=== PATIENT | male | born 1990 ===

== ENCOUNTER → 2023-08-27 08:04 | Outpatient (REF) | payer OTHER, SELFPAY | LOC: RAD 08:04 | PROVIDERS: ATTENDING PHYSICIAN Internal Medicine Cardiovascular Disease; FAMILY PHYSICIAN Internal Medicine | DX: R07.9 Chest pain, unspecified (principal); R94.39 Abnormal result of other cardiovascular function study | CPT/HCPCS: 75574; Q9967 ==